=== PATIENT | male | born 1985 | race Caucasian/White ===

== ENCOUNTER 2022-02-19 07:08 | Day surgery (SDC) | payer OTHER ==
[~2022-02-19] VITALS: Ht 185.4 cm; Wt 84.0 kg
[2022-02-19] VITALS (201 sets, daily range): BP systolic 91–151; BP diastolic 46–104
--- NOTE | 2022-02-19 07:00 | NUR ---
PT AMBULATED TO ROOM WITH FATHER. PT HAS NAD. PT HAS BEEN ORIENTED TO ROOM, CALLL LIGHT AND POC. PT HAS NO QUESTIONS OR CONCERNS AT THIS TIME. PT HAS FALL PRECAUTIONS IN PLACE. PT ABLE TO MAKE NEEDS KNOWN AND WILL CALL IF IN NEED OF ASSISTANCE. WILL CONTINUE TO MONITOR.
[2022-02-19] MEDS ORDERED: GABAPENTIN800 MG PO (08:16)
[2022-02-19] MEDS ORDERED: VISTARIL 50MG C50 M1 PO (08:18)
[2022-02-19] MEDS ORDERED: ATIVAN1 MG PO (08:18)
[2022-02-19 08:56] LABS: ALBUMIN 4.1 g/dL (3.2-5.0); ALKALINE PHOSPHATASE 59 u/l (38-126); ANION GAP 11 (6-22 (CALC)); BILIRUBIN, TOTAL 0.4 mg/dL (0.0-1.4); BUN 14 mg/dL (9-20); BUN/CREATININE RATIO 18 (12-20 (CALC)); CARBON DIOXIDE 30 mmol/l (22-30); CHLORIDE 105 mmol/l (95-108); CREATININE 0.8 mg/dL (0.7-1.3); GFR FOR AFR.AMER. > 60 ML/MIN (>=60 (CALC)); GFR OTHER RACES > 60 ML/MIN (>=60 (CALC)); HEMATOCRIT 38.1 % (39.0-50.0); IMMATURE GRANULOCYTES 0.2 % (0.0-5.0); MEAN CELL VOLUME 91.4 fL CALC (80.0-100.0); MEAN CORPUSCULAR HGB 31.2 pG CALC (26.0-32.0); MEAN CORPUSCULAR HGB CONC 34.1 g/dL CAL (32.0-36.0); NEUT# 1.64 thou/uL (1.82-7.42); POTASSIUM 4.2 mmol/l (3.5-5.1); RED BLOOD COUNT 4.17 mill/uL (4.70-6.10); RED CELL DISTRI WIDTH 13.2 % (11.5-15.5); SGOT/AST 31 u/l (17-59); SODIUM 141 mmol/l (137-146); TOTAL PROTEIN 6.7 g/dL (6.3-8.2)
--- NOTE | 2022-02-19 09:30 | NUR ---
PATIENT IS RESTING PEACEFULLY. PATIENT HAS CALL LIGHT WITH IN REACH. VITALS TAKEN AND VIT C GIVEN.
[2022-02-19] MEDS ORDERED: NALTREXONE50 MG PO (09:51)
[2022-02-19] MEDS ORDERED: KLONOPIN2 MG PO (09:51)
[2022-02-19] MEDS ORDERED: CLONIDINE0.1 MG PO (09:51)
--- NOTE | 2022-02-19 11:25 | NUR ---
Induction Note Patient to [facility] procedure room. Time out performed at 1125. Patient placed on monitors, Tita hugger, bilateral wrist restraints applied for ET tube protection. Versed 5mg given IV push at 1130 Tourniquet applied to 1131 arm Lidocaine 100mg given [id number] IV push followed by Rocoronium 10mg at 1132 IV push and held for 90 seconds. Propofol bolus of 120mg given at 1133 IV push. Succinylcholine 80mg given IV push at 1134. Smooth intubation with 7.5 ETT. Positive CO2. Positive Auscultation for air exchange. Patient placed on ventilator for spontaneous ventilation. Placed on Propofol IV drip at 1135. OG inserted. Positive air on auscultation. Positive gastric content. Stomach washed at this time. Naltrexone 75mg given via OG tube with Clonidine 0.2 mg given via OG Tube. OG clamped for 45 minutes. Will monitor patient for symptoms of withdrawal and adjust propfol accordingly.
--- NOTE | 2022-02-19 11:46 | NUR ---
OG close note Stomach washed at this time. Naltrexone 75 mg with Clonidine 0.2 mg via OG tube. OG will be clamped for 45 minutes.
--- NOTE | 2022-02-19 12:31 | NUR ---
OG open note OG open at this time. Gastric content draining into drainage bag. OG to drain for 45 minutes. Propofol will be titrated down based on patient.
--- NOTE | 2022-02-19 13:19 | NUR ---
OG close note Stomach washed at this time. Naltrexone 50 mg with Clonidine 0.2 mg via OG tube. OG will be clamped for 45 minutes.
--- NOTE | 2022-02-19 15:10 | NUR ---
OG close note Stomach washed at this time. Naltrexone 25 mg with Clonidine 0.2 mg via OG tube. OG will be clamped for 45 minutes.
--- NOTE | 2022-02-19 16:53 | NUR ---
OG close note Stomach washed at this time. Clonidine 0.2 mg via OG tube. OG will be clamped for 30 minutes.
--- NOTE | 2022-02-19 17:31 | NUR ---
Extubation note Closing medications given Benadryl 50mg IV push, Decadron 10mg IV push,Magnesium 4 grams IV, Zofran 8mg IV push, Octreotide 100mcg SC. Stomach washed out prior to extubation. Suctioned gastric content. OG removed. Patient extubated. Propofol Discontinued. Wrist restraints removed. Tita hugger Removed. See ANR Moderate sedate recovery record for further notes and assessment.
--- NOTE | 2022-02-19 18:30 | NUR ---
PT TRANSPORTED TO ROOM VIA STRETCHER IN NOAD, RESP EVEN ADN UNLABORED. ROUSES TO VOICE. BEDSIDE REPORT TO RAJAN GUTHRIE
--- NOTE | 2022-02-19 19:40 | NUR ---
PATIENT RESTING IN BED. NO SIGNS OF DISTRESS NOTED. NON REBREATHER OBSERVED ON PATIENT FROM DOWNSTAIRS. BED REMAINS IN LOW POSITION. BED ALARM ACTIVE FOR SAFETY.
--- NOTE | 2022-02-19 19:40 | NUR ---
PATIENT RESTING IN BED. NO SIGNS OF DISTRESS. EYES CLOSED. VS REMAIN STABLE. BED REMAINS IN LOW POSITION. BED ALARM ACTIVE FOR SAFETY.
--- NOTE | 2022-02-19 23:22 | NUR ---
NOTIFIED MD OF PATIENT COMPLAINTS OF PAIN. NEW ORDER RECEIVED, SEE EMAR.
--- NOTE | 2022-02-19 23:54 | NUR ---
PATIENT RECEIVED PRN PAIN MEDICATION FOR GENERALIZED PAIN. BED REMAINS IN LOW POSITION. BED ALARM ACTIVE. PATIENT ABLE TO MAKE NEEDS KNOWN.
[2022-02-20 03:37] VITALS: BP 138/67
--- NOTE | 2022-02-20 04:06 | NUR ---
PATIENT RESTING IN BED. RECEIVED ALL 0400 MEDICATIONS INCLUDING PRN TYLENOL FOR GENERALIZED PAIN. TOLERATED MEDICATIONS WELL. BED REMAINS IN LOW POSITION. BED ALARM ACTIVE.
[2022-02-20 05:14] LABS: HEMATOCRIT 36.5 % (39.0-50.0); IMMATURE GRANULOCYTES 0.2 % (0.0-5.0); MEAN CORPUSCULAR HGB 31.3 pG CALC (26.0-32.0); MEAN CORPUSCULAR HGB CONC 35.6 g/dL CAL (32.0-36.0); NEUT# 5.49 thou/uL (1.82-7.42); RED BLOOD COUNT 4.15 mill/uL (4.70-6.10); RED CELL DISTRI WIDTH 12.9 % (11.5-15.5)
[2022-02-20 05:35] LABS: ALBUMIN 3.8 g/dL (3.2-5.0); ALKALINE PHOSPHATASE 37 u/l (38-126); BUN 10 mg/dL (9-20); BUN/CREATININE RATIO 12 (12-20 (CALC)); CHLORIDE 108 mmol/l (95-108); CREATININE 0.8 mg/dL (0.7-1.3); GFR FOR AFR.AMER. > 60 ML/MIN (>=60 (CALC)); GFR OTHER RACES > 60 ML/MIN (>=60 (CALC)); MAGNESIUM 2.1 mg/dL (1.6-2.3); POTASSIUM 4.2 mmol/l (3.5-5.1); SGOT/AST 27 u/l (17-59); SODIUM 140 mmol/l (137-146); TOTAL PROTEIN 6.3 g/dL (6.3-8.2)
[2022-02-20 05:39] LABS: ANION GAP 14 (6-22 (CALC)); BILIRUBIN, TOTAL 0.9 mg/dL (0.0-1.4); CARBON DIOXIDE 22 mmol/l (22-30)
--- NOTE | 2022-02-20 07:15 | NUR ---
RECEIVE REPORT FROM [place]. MICHAEL
--- NOTE | 2022-02-20 08:00 | NUR ---
PATIENT RESTING STABLE IN BED . VITAL SIGNS STABLE AT HTIS TIME. BED ALARM ON AND BED IN LOW POSITION. PATIENT DOES NOT RESPIRATORY DISTRESS. SAFETY AND FSLL PRECAUTION IN PLACE. CALL LIGHT WITHIN REACH.
[2022-02-20 12:02] VITALS: BP 125/64
--- NOTE | 2022-02-20 12:14 | NUR ---
PATIENT RESTING STABLE IN BED.
== END 2022-02-20 15:06 | disposition home or self-care (01) | DRG 897 ==
LOC: ANR 07:08 → MS2 07:11 → ANR 08:00
PROVIDERS: ATTEND Anesthesiology
DX: F11.20 Opioid dependence, uncomplicated (principal)
CPT/HCPCS: J2354